=== PATIENT | male | born 1985 | race Two or more races ===

== ENCOUNTER 2024-03-31 22:20 | Emergency (ER) | payer OTHER, MEDICAID ==
[~2024-03-31] VITALS: Ht 175.3 cm; Wt 91.0 kg
[2024-03-31] MEDS ORDERED: KETOROLAC TROMETH 60MG/2ML VIAL IM ONE (22:45)
[2024-03-31 22:48] VITALS: BP 127/71; RESP 18; O2SAT 97
--- NOTE | 2024-03-31 23:07 | DVH ---
CHEST RADIOGRAPH Indication: chest pain Technique: Single frontal view of the chest was obtained Comparison: None FINDINGS: Lines and Tubes: None Lungs: Clear Pleura: No effusion. No pneumothorax. Cardiomediastinal contours: Unremarkable Bones: Unremarkable IMPRESSION: Clear lungs.
[2024-03-31 23:14] LABS: Basophils # (auto) 0.1 10 ^3/uL (0-0.2); Basophils % (auto) 0.9 % (0.0-2.0); Eosinophils # (auto) 0.4 10 ^3/uL (0-0.8); Eosinophils % (auto) 4.5 % (0.0-7.0); Hematocrit 48.7 % (41.0-53.0); Hemoglobin 16.2 g/dL (13.5-17.5); Lymphocytes # (auto) 3.2 10 ^3/uL (0.4-5.4); Mean Corpuscular Hemoglobin 29.5 pg (28.0-32.0); Mean Corpuscular Hgb Conc. 33.3 g/dL (32.0-36.0); Mean Corpuscular Volume 88.8 fL (80.0-100.0); Monocytes # (auto) 0.6 10 ^3/uL (0-1.3); Neutrophils # (auto) 3.7 10 ^3/uL (1.6-8.6); Neutrophils % (auto) 46.6 % (37.0-80.0); Nucleated Red Blood Cells % 0.1 %; Platelet Count (auto) 276 10^3/uL (140-450); Red Blood Cells 5.48 10^6/uL (4.5-5.90); Red Cell Distribution Width 13.3 % (11.8-14.3)
[2024-03-31 23:24] LABS: Chloride 104 mmol/L (98-107); Potassium 4.2 mmol/L (3.5-5.1); Sodium 139 mmol/L (136-145)
[2024-03-31 23:25] LABS: Anion Gap 9 (5-15); Carbon Dioxide 26 mmol/L (20-31)
[2024-03-31 23:26] LABS: Calcium 9.7 mg/dL (8.7-10.4)
[2024-03-31 23:30] LABS: INR 1.08 (0.9-1.15); Partial Thromboplastin Time 28.5 SEC (24.5-34.5); Prothrombin Time 11.4 sec (9.3-11.8)
[2024-03-31 23:31] LABS: BUN/Creatinine Ratio 24.5 (10.0-20.0); Glucose 91 mg/dL (74-106)
[2024-03-31 23:37] LABS: Blood Urea Nitrogen 24 mg/dL (9-23)
--- NOTE | 2024-03-31 23:55 | ECG ---
[facility] Test Date: 2024-03-31 Test Time: 23:28:16 Pat Name: KELSIE MORGAN Department: ED Room: Gender: M Correction Officer Supervisor: MARSHA : 1985 Requested By: HAFSA PIPER Order Number: [id number] Reading MD: Measurements Intervals [place] Rate: 49 P: 38 VT: 176 QRS: 12 QRSD: 86 T: -2 QT: 420 QTc: 380 Interpretive Statements Sinus bradycardia Borderline T abnormalities, inferior leads Please click the below link to view image of tracing.
--- NOTE | 2024-04-01 01:02 | ED.PDOC ---
History of Present Illness HPI Comments 38 y/o M with a history of bradycardia brought in by self complaining of retrosternal chest pain radiating to the right upper extremity, associated with shortness of breath, onset 1 week ago. He states the pain is pressure- like/burning, and is relieved by taking aspirin. Patient states he has had similar symptoms in the past and underwent cardiac workup including stress test 7 months ago, which was negative. 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 He denies any fever, cough, current shortness a breath, nausea, vomiting, diaphoresis or edema. Chief Complaint: Chest Pain Time Seen by MD: 22:40 Reviewed Notes: Nurses Notes, Medications, Allergies Allergies: Coded Allergies: Penicillins (Verified Allergy, Unknown, 03/31/24) Information Source: Patient Mode of Arrival: Ambulatory Severity: Moderate Timing: Weeks Duration: Since onset Prehospital treatment: ASA Past Medical History Past Medical History (Other): Head injury as a child Surgical History (Other): left-wrist surgery Family History Family History: Unknown Social History Smoker: Non-Smoker Alcohol: Denies ETOH Use Drugs: Denies Drug Use Lives In: Home All Other Systems: Reviewed and Negative (Comprehensive systems review obtained and negative except for what is stated in the HPI.) Physical Exam General Appearance: No Apparent Distress HEENT: Other (Pupils and face symmetric. Moist mucous membranes.) Neck: Full Range of Motion, Normal Inspection Respiratory: Lungs Clear, No Accessory Muscle Use, No Respiratory Distress, Normal Breath Sounds Cardiovascular: Bradycardia, No Edema, No JVD Breast Exam: Deferred Gastrointestinal: Non Tender, Soft Genitalia: Deferred Pelvic: Deferred Rectal: Deferred Extremities: Normal inspection, Normal range of motion, Non-tender, No pedal edema Neurologic: Alert (Oriented x4), Normal Affect, Normal Mood, Other (Ambulatory without difficulty. No gross focal deficit.) Cerebellar Function: NOT DONE Reflexes: NOT DONE Skin: Dry, Normal Color, Warm Lymphatic: NOT DONE Was a procedure done? Was a procedure done?: No EKG EKG : Comments Sinus bradycardia, rate 49, normal intervals, normal axis, normal QRS, nonspecific T changes. Differential Dx Considerations may include: ACS, PR, arrhythmia, chest wall pain, infection such as bronchitis or pneumonia, anxiety, CHF, COPD/asthma, among others X-Ray, Labs, Meds, VS Vital Signs Date Time Temp Pulse Resp B/P (MAP) Pulse Ox O2 Delivery O2 Flow Rate FiO2 04/01/24 03:57 04/01/24 01:02 49 03/31/24 23:28 49 03/31/24 22:48 97.8 62 18 127/71 (89) 97 03/31/24 22:28 60 Lab Test 04/01/24 01:40 03/31/24 23:40 03/31/24 22:51 Range/Units Troponin I High Sensitivity 3 L 4 3 L </=54 ng/L White Blood Count 8.0 4.4-10.8 10^3/uL Red Blood Count 5.48 4.5-5.90 10^6/uL Hemoglobin 16.2 13.5-17.5 g/dL Hematocrit 48.7 41.0-53.0 % Mean Corpuscular Volume 88.8 80.0-100.0 fL Mean Corpuscular Hemoglobin 29.5 28.0-32.0 pg Mean Corpuscular Hemoglobin Concent 33.3 32.0-36.0 g/dL Red Cell Distribution Width 13.3 11.8-14.3 % Platelet Count 276 140-450 10^3/uL Mean Platelet Volume 7.4 6.9-10.8 fL Neutrophils (%) (Auto) 46.6 37.0-80.0 % Lymphocytes (%) (Auto) 40.0 10.0-50.0 % Monocytes (%) (Auto) 8.0 0.0-12.0 % Eosinophils (%) (Auto) 4.5 0.0-7.0 % Basophils (%) (Auto) 0.9 0.0-2.0 % Neutrophils # (Auto) 3.7 1.6-8.6 10 ^3/uL Lymphocytes # (Auto) 3.2 0.4-5.4 10 ^3/uL Monocytes # (Auto) 0.6 0-1.3 10 ^3/uL Eosinophils # (Auto) 0.4 0-0.8 10 ^3/uL Basophils # (Auto) 0.1 0-0.2 10 ^3/uL Nucleated Red Blood Cells 0.1 % Prothrombin Time 11.4 9.3-11.8 sec Prothrombin Time INR 1.08 0.9-1.15 Activated Partial Thromboplast Time 28.5 24.5-34.5 SEC D-Dimer, Quantitative 0.20 0.0-0.49 mg/L FEU Sodium Level 139 136-145 mmol/L Potassium Level 4.2 3.5-5.1 mmol/L Chloride Level 104 98-107 mmol/L Carbon Dioxide Level 26 20-31 mmol/L Anion Gap 9 5-15 Blood Urea Nitrogen 24 H 9-23 mg/dL Creatinine 0.98 0.700-1.30 mg/dL Glomerular Filtration Rate Calc 101 >90 mL/min BUN/Creatinine Ratio 24.5 H 10.0-20.0 Serum Glucose 91 74-106 mg/dL Calcium Level 9.7 8.7-10.4 mg/dL B-Type Natriuretic Peptide 5.16 0-100 pg/mL [place] [address] Ph: [phone] DIAGNOSTIC IMAGING Diagnostic Imaging Report : [id number] Signed PATIENT: KELSIE MORGAN ACCT: [id number] UNIT: [id number] : 1985 LOC: ER ROOM / BED: / AGE / SEX: 38 / M ADM STATUS: REG ER SERVICE 39 ORDERING PHYSICIAN: HAFSA DAMICO MD PROCEDURE(s): CXRP - CHEST PORTABLE REASON: chest pain ORDER NUMBER(s): [id number], ACCESSION NUMBER(s): [id number] CHEST RADIOGRAPH Indication: chest pain Technique: Single frontal view of the chest was obtained Comparison: None FINDINGS: Lines and Tubes: None Lungs: Clear Pleura: No effusion. No pneumothorax. Cardiomediastinal contours: Unremarkable Bones: Unremarkable IMPRESSION: Clear lungs. ATED BY: CIPRIANO BLACKBURN DO DICTATED DATE/TIME: 03/31/242303 SIGNED BY: CIPRIANO BLACKBURN DO SIGNED DATE/TIME: 03/31/242303 CC: X-Ray, Labs, Meds, VS Comment 38-year-old male with no significant past medical history and negative cardiac workup 7 months ago complaining of chest pain Vitals remarkable for heart rate 49 Exam remarkable for bradycardia Rhythm strip independently interpreted by me: Sinus bradycardia, rate 49, no ectopy. Chest x-ray Unremarkable CBC unremarkable, metabolic panel remarkable for BUN 24, BNP, 3 serial troponins, coag panel and D-dimer unremarkable for any abnormality of acute significance Patient treated with the following in the ED: Toradol 60 mg IM Plan was to admit/transfer the patient for Cardiology evaluation, however at around 0250 patient stated he was leaving and walked out of the ED. I was not advised that the patient left. Time of 1ST Reevaluation: 23:10 Reevaluation 1ST: Unchanged Patient Education/Counseling: Diagnosis, Treatment Family Education/Counseling: No Family Present Departure 1 Departure Time of Disposition: 02:54 Impression: Primary Impression: Chest pain Qualified Codes: R07.9 - Chest pain, unspecified Additional Impression: Bradycardia Disposition: 07 LEFT AWOL/ELOPED Condition: Fair Critical Care Note Critical Care Time?: No Stability Stability form required: No Heart Score Heart Score: Heart Score Response (Comments) Value History Moderate Suspicious 1 EKG Normal 0 Age <45 0 Risk Factors No known risk factors 0 Troponin Normal limit 0 Total 1 I personally scribed for HAFSA DAMICO MD ([email or web address]) on 04/01/24 at 01:02. Electronically submitted by Raul Hartley [email or web address]). HAFSA DAMICO MD Apr 01, 2024 01:02
[2024-04-01] MEDS ORDERED: PIPERACILLIN-TAZO 4.5GM 100 ML IV ONE (04:55)
--- NOTE | 2024-04-01 09:46 | ECG ---
[facility] Test Date: 2024-03-31 Test Time: 22:28:04 Pat Name: KELSIE MORGAN Department: ED Room: Gender: M [employer] Faculty: : 1985 Requested By: HAFSA PIPER Order Number: [id number] Reading MD: Measurements Intervals [place] Rate: 60 P: 39 MD: 177 QRS: 9 QRSD: 90 T: -1 QT: 398 QTc: 398 Interpretive Statements Sinus rhythm Please click the below link to view image of tracing.
== END 2024-04-01 02:54 | disposition left against medical advice (07) ==
LOC: ER 22:20
DX: R07.89 Other chest pain (principal); R00.1 Bradycardia, unspecified; Z88.0 Allergy status to penicillin
CPT/HCPCS: 36415; 71045; 80048; 83880; 84484; 85025; 85379; 85610; 85730; 93005